=== PATIENT | male | born 1965 | race Caucasian/White ===

== ENCOUNTER 2018-06-18 19:05 | Emergency (ER) | payer BC ==
[~2018-06-18] VITALS: Ht 175.3 cm; Wt 72.6 kg
[~2018-06-18 19:05] MED LIST: FAMO-131 PO; HYDR-4354 PO; IBUP-1955 PO; OXYC-133 PO
[2018-06-18 19:19] VITALS: BP 124/75
[2018-06-18] MEDS ORDERED: CLINDAMYCIN 900 MG/6 ML VIAL ONE (19:45)
[2018-06-18] MEDS ORDERED: LIDOCAINE 1%-EPI 1:100,000 20 ML VIAL ONE (19:45)
[2018-06-18] MEDS ORDERED: LIDOCAINE 1%-EPI 1:100,000 20 ML VIAL TP ONE (20:00)
[2018-06-18] MEDS ORDERED: CLINDAMYCIN 900 MG/6 ML VIAL IM ONE (20:00)
== END 2018-06-18 21:51 | disposition home or self-care (01) ==
LOC: ER 19:09
DX: L02.413 Cutaneous abscess of right upper limb (principal); F17.200 Nicotine dependence, unspecified, uncomplicated; L03.113 Cellulitis of right upper limb; K21.9 Gastro-esophageal reflux disease without esophagitis; F41.9 Anxiety disorder, unspecified; Z79.899 Other long term (current) drug therapy
CPT/HCPCS: 10060; 96372; 99283; 99406; J3490 ×2

== ENCOUNTER 2018-06-19 22:57 | Emergency (ER) | payer BC ==
[~2018-06-19] VITALS: Ht 175.3 cm; Wt 74.8 kg
[2018-06-19 23:06] VITALS: BP 139/92
--- NOTE | 2018-06-19 23:24 | NUR ---
Tressa SUE, PAC IS AT THE BEDSIDE FOR SUTURE REMOVAL.
--- NOTE | 2018-06-19 23:32 | NUR ---
[facility] REPACKED BY Tressa SUE, PAC
--- NOTE | 2018-06-19 23:50 | NUR ---
Patient discharged to home in stable condition. Written and verbal after care instructions given. Patient verbalizes understanding of instruction.
== END 2018-06-19 23:51 | disposition home or self-care (01) ==
LOC: ER 22:59
DX: L02.413 Cutaneous abscess of right upper limb (principal); K21.9 Gastro-esophageal reflux disease without esophagitis; F41.9 Anxiety disorder, unspecified; F17.200 Nicotine dependence, unspecified, uncomplicated

== ENCOUNTER 2018-07-10 20:45 | Emergency (ER) ==
[~2018-07-10] VITALS: Ht 175.3 cm; Wt 74.8 kg
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
[2018-07-10 21:42] LABS: BASOPHILS % (AUTO) 0.6 % (0.0-2.0); HEMATOCRIT 34 % (39-51); HEMOGLOBIN 11.2 g/dL (13.5-17.5); LYMPHOCYTES # (AUTO) 1.8 /CMM (0.8-4.8); LYMPHOCYTES % (AUTO) 44.3 % (20.0-44.0); MEAN CORPUSCULAR HGB CONC 33 g/dl (31.0-36.0); MEAN CORPUSCULAR VOLUME 86 fL (80-96); MONOCYTES # (AUTO) 0.2 /CMM (0.1-1.30); MONOCYTES % (AUTO) 4.5 % (2.0-12.0); NEUTROPHILS # (AUTO) 1.9 /CMM (1.8-8.9); NEUTROPHILS % (AUTO) 48.6 % (43.0-81.0); PLATELET COUNT (AUTO) 264 /CMM (150-450); RED BLOOD CELL COUNT(AUTO) 3.89 MIL/uL (4.5-6.0)
[2018-07-10 21:46] LABS: APPEARANCE,URINE Clear (CLEAR); BILIRUBIN,URINE SMALL (NEGATIVE); BLOOD, URINE Negative Ery/uL (NEGATIVE); KETONES,URINE Negative (NEGATIVE); LEUKOCYTE ESTERASE ,URINE Negative (NEGATIVE); NITRITE, URINE Negative (NEGATIVE); PH,URINE 5.5 (5.0-8.0); PROTEIN,URINE Negative (NEGATIVE); UGLUCOSE Negative (NEGATIVE)
[2018-07-10 21:54] LABS: COLOR,URINE DARK YELLOW (YELLOW)
--- NOTE | 2018-07-10 21:55 | NUR ---
Patient is resting comfortably in bed with eyes closed. Easily aroused. VSS
[2018-07-10 22:17] LABS: CALCIUM, SERUM 8.6 mg/dL (8.5-10.1); CARBON DIOXIDE 31 mmol/L (21-32); CHLORIDE 105 mmol/L (98-107); CREATININE 0.9 mg/dL (0.6-1.3); GLUCOSE 142 mg/dL (74-106); POTASSIUM 3.9 mmol/L (3.5-5.1); SODIUM SERUM 142 mmol/L (136-145); UREA NITROGEN, BLOOD 14 mg/dL (7-18)
[2018-07-10 22:22] LABS: ALANINE AMINOTRANSFERASE 56 U/L (12-78); ALBUMIN 3.6 g/dL (3.4-5.0); ALKALINE PHOSPHATASE 104 U/L (46-116); ASPARTATE AMINOTRANSFERASE 48 U/L (15-37); BILIRUBIN,DIRECT 0.1 mg/dL (0.0-0.2); BILIRUBIN,TOTAL 0.5 mg/dL (0.2-1.0); LIPASE 80 U/L (73-393); TOTAL PROTEIN, SERUM 7.8 g/dL (6.4-8.2)
[2018-07-10] MEDS ORDERED: IPRATROPIUM NEB FS 0.5 MG/2.5 ML AMPUL.NEB NEB ONE (22:30)
[2018-07-10] MEDS ORDERED: ALBUTEROL FS 2.5 MG/3 ML VIAL.NEB NEB ONE (22:30)
[2018-07-10] MEDS ORDERED: IPRATROPIUM NEB FS 0.5 MG/2.5 ML AMPUL.NEB ONE (22:37)
[2018-07-10] MEDS ORDERED: ALBUTEROL FS 2.5 MG/3 ML VIAL.NEB ONE (22:37)
[2018-07-10] MEDS ORDERED: IBUPROFEN 600 MG TABLET PO ONE ×2 (22:38→23:00)
[2018-07-10] MEDS ORDERED: ACETAMINOPHEN ES 500 MG TABLET ONE (22:38)
[2018-07-10] MEDS ORDERED: ACETAMINOPHEN ES 500 MG TABLET PO ONE (23:00)
--- NOTE | 2018-07-10 23:08 | NUR ---
Patient is resting comfortably in bed with family at the bed side. vss. will cont to monitor ,
[2018-07-10 23:14] LABS: BACTERIA,URINE Few /HPF (None Seen); MUCUS,URINE Moderate /LPF (None Seen); SQUAMOUS EPITHELIAL CELL,UR Rare /HPF (None Seen)
--- NOTE | 2018-07-10 23:51 | NUR ---
Patient discharged to home in stable condition. Written and verbal after care instructions given. Patient verbalizes understanding of instruction. vss. afriend will provide ride to the pt.
[2018-07-11 01:11] VITALS: BP 125/72
== END 2018-07-10 23:51 | disposition home or self-care (01) ==
LOC: ER 20:47
DX: J40 Bronchitis, not specified as acute or chronic (principal); R07.81 Pleurodynia; F17.200 Nicotine dependence, unspecified, uncomplicated; I10 Essential (primary) hypertension; K21.9 Gastro-esophageal reflux disease without esophagitis; F41.9 Anxiety disorder, unspecified; F32.9 Major depressive disorder, single episode, unspecified
CPT/HCPCS: 36415; 71045-TC; 80048-TC; 80076-TC; 81000-TC; 83690-TC; 84484-TC; 85025-TC; 87086-TC

== ENCOUNTER 2018-08-09 22:51 | Emergency (ER) | payer BC ==
[~2018-08-09] VITALS: Ht 177.8 cm; Wt 83.5 kg
[2018-08-09] MEDS ORDERED: ALBUTEROL FS 2.5 MG/0.5 ML VIAL.NEB NEB ONE (23:30)
[2018-08-09] MEDS ORDERED: ALBUTEROL FS 2.5 MG/0.5 ML VIAL.NEB ONE (23:48)
[2018-08-10] MEDS ORDERED: IBUPROFEN 400 MG TABLET ONE (00:06)
--- NOTE | 2018-08-10 00:25 | NUR ---
Breathing tx completed. Patient ambulatory w/ steady gait, resp even & unlabored, denies any sob at this time w/ nad noted. Patient discharged to home in stable condition. Written and verbal after care instructions given. Patient verbalizes understanding of instruction.
[2018-08-10 00:27] VITALS: BP 127/76
[2018-08-10] MEDS ORDERED: IBUPROFEN 400 MG TABLET PO ONE (00:30)
== END 2018-08-10 00:28 | disposition home or self-care (01) ==
LOC: ER 22:59
DX: J98.01 Acute bronchospasm (principal); F17.200 Nicotine dependence, unspecified, uncomplicated; I10 Essential (primary) hypertension; K21.9 Gastro-esophageal reflux disease without esophagitis; F41.9 Anxiety disorder, unspecified; F32.9 Major depressive disorder, single episode, unspecified
CPT/HCPCS: 71045-TC

== ENCOUNTER 2018-08-15 23:51 | Inpatient (IN) | payer BC ==
[~2018-08-15] VITALS: Ht 175.3 cm; Wt 82.6 kg
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
--- NOTE | 2018-08-16 00:28 | NUR ---
PT IS GOING TO [facility] VIA [facility].
[2018-08-16] MEDS ORDERED: ACETAMINOPHEN 325 MG TABLET PO ONE (00:30)
[2018-08-16] MEDS ORDERED: ACETAMINOPHEN ES 500 MG TABLET ONE (00:41)
--- NOTE | 2018-08-16 00:55 | NUR ---
PT RETURNED FROM CT.
--- NOTE | 2018-08-16 01:00 | NUR ---
PT'S IS AT THE BEDSIDE.
--- NOTE | 2018-08-16 01:25 | NUR ---
Nannette ERIC PA-C IS AT THE BEDSIDE SPEAKING TO THE PT RE: THE IMAGING FINDINGS.
[2018-08-16 02:05] LABS: BASOPHILS % (AUTO) 0.9 % (0.0-2.0); EOSINOPHILS % (AUTO) 2.9 % (0.0-6.0); HEMATOCRIT 31 % (39-51); HEMOGLOBIN 10.3 g/dL (13.5-17.5); LYMPHOCYTES # (AUTO) 1.8 /CMM (0.8-4.8); MEAN CORPUSCULAR HGB CONC 34 g/dl (31.0-36.0); MEAN CORPUSCULAR VOLUME 85 fL (80-96); MONOCYTES # (AUTO) 0.2 /CMM (0.1-1.30); MONOCYTES % (AUTO) 4.6 % (2.0-12.0); NEUTROPHILS # (AUTO) 1.5 /CMM (1.8-8.9); NEUTROPHILS % (AUTO) 40.6 % (43.0-81.0); PLATELET COUNT (AUTO) 303 /CMM (150-450); RED BLOOD CELL COUNT(AUTO) 3.59 MIL/uL (4.5-6.0); WHITE BLOOD COUNT (AUTO) 3.6 K/uL (4.3-11.0)
[2018-08-16 02:12] LABS: CALCIUM, SERUM 8.6 mg/dL (8.5-10.1); CREATININE 0.8 mg/dL (0.6-1.3); POTASSIUM 4.4 mmol/L (3.5-5.1)
--- NOTE | 2018-08-16 02:12 | NUR ---
PT'S LEFT AND PT IS TRYING TO HAVE HER COME BACK. PT'S WANTS TO LEAVE.
--- NOTE | 2018-08-16 02:44 | NUR ---
PT APPEARS TO BE RESTING COMFORTABLY WITH NO S/S OF PAIN OR DISTRESS. VSS.
--- NOTE | 2018-08-16 03:13 | NUR ---
REPORT GIVEN TO DEBBIE MEDEL FOR DANNIE.
[2018-08-16 04:00] VITALS: BP 141/92
[2018-08-16] MEDS ORDERED: ONDANSETRON HCL/PF 4 MG/2 ML VIAL IVP PRN (04:00)
[2018-08-16] MEDS ORDERED: HYDROCODONE/APAP 5/325MG 1 EACH TABLET PO PRN (04:00)
[2018-08-16] MEDS ORDERED: MORPHINE SULFATE INJ 2 MG/ML DISP.SYRIN IV PRN (04:00)
[2018-08-16] MEDS ORDERED: ACETAMINOPHEN 325 MG TABLET PO PRN (04:00)
[2018-08-16] MEDS ORDERED: Z GUARD REMEDY 2 OZ OINT TP PRN (04:00)
[2018-08-16] MEDS ORDERED: MAGNESIUM HYDROXIDE 30 ML UDC PO PRN (04:00)
[2018-08-16] MEDS ORDERED: ZOLPIDEM TARTRATE 5 MG TABLET PO PRN (04:00)
[2018-08-16] MEDS ORDERED: MAG HYDROX/AL HYDROX/SIMETH 30 ML UDC PO PRN (04:00)
--- NOTE | 2018-08-16 04:09 | NUR ---
REPORT GIVEN TO LIGIA LEWIS FOR CONTINUATION OF CARE.
[2018-08-16 04:10] VITALS: BP 141/92
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
[2018-08-16] MEDS ORDERED: AMLO5TAB4 PO (04:40)
[2018-08-16] MEDS ORDERED: BUPR-96 PO (04:40)
[2018-08-16] MEDS ORDERED: ALPR2TAB7 PO (04:40)
[2018-08-16] MEDS ORDERED: METH10TA2 PO (04:40)
--- NOTE | 2018-08-16 06:41 | NUR ---
MS RN CLOSING NOTES Patient resting in bed, alert, oriented x 3. Breathing even and unlabored. Not in any distress, on room air. Patient complaining of sternal pain, 08/30. [place] 5-325 given as ordered. No acute changes since patient came to the unit. Safety measures in place. Will continue to monitor accordingly
[2018-08-16 08:00] VITALS: BP 141/90
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
[2018-08-16] MEDS ORDERED: BUPROPION XL 150 MG TAB.ER.24 PO SCH (09:00)
[2018-08-16] MEDS ORDERED: AMLODIPINE BESYLATE 5 MG TABLET PO SCH (09:00)
[2018-08-16] MEDS ORDERED: ALPRAZOLAM 1 MG TABLET PO SCH (09:00)
[2018-08-16 09:03] VITALS: BP 141/90
[2018-08-16] MEDS: IBUPROFEN 600 MG TABLET PO SCH ×2 (09:03→17:48)
[2018-08-16] MEDS ORDERED: METHADONE HCL 10 MG TABLET PO SCH (12:00)
--- NOTE | 2018-08-16 18:33 | NUR ---
PATIENT SIGNED AMA FORM ,DOES NOT WANT TO STAY IN THE HOSPITAL PER PATIENT 'THERE IS NOTHING WE CAN DO',EXPLAINED RISK OF LEAVING AMA AND STILL DECIDED AMA,INSTRUCTED TO GO BACK TO ER IF SYMPTOMS RECUR. NOTIFIED,NSG SUP MADE AWARE,IV REMOVED,LEFT AMBULATORY.
[2018-08-17] MEDS ORDERED: NICOTINE PATCH (14MG) 14 MG PATCH.TD24 TD SCH (09:00)
== END 2018-08-16 18:30 | disposition left against medical advice (07) | DRG 135 ==
LOC: ER 23:53 → TELE1 08-16 03:15 → MEDSG1 08-16 03:59
PROVIDERS: ADMIT Registered Nurse; ATTEND Registered Nurse
DX: S22.22XA Fracture of body of sternum, initial encounter for closed fracture (principal); M48.04 Spinal stenosis, thoracic region; S22.42XA Multiple fractures of ribs, left side, initial encounter for closed fracture; I10 Essential (primary) hypertension; V18.0XXA Pedal cycle driver injured in noncollision transport accident in nontraffic accident, initial encounter; Y93.55 Activity, bike riding; Y92.89 Other specified places as the place of occurrence of the external cause; K21.9 Gastro-esophageal reflux disease without esophagitis; D64.9 Anemia, unspecified; F32.9 Major depressive disorder, single episode, unspecified; F41.9 Anxiety disorder, unspecified; Z79.899 Other long term (current) drug therapy; F19.90 Other psychoactive substance use, unspecified, uncomplicated; Z72.0 Tobacco use; D72.819 Decreased white blood cell count, unspecified; J98.11 Atelectasis; N20.0 Calculus of kidney
CPT/HCPCS: 36415; 71250-TC; 73564-TC; 80048-TC; 85025-TC; 85730-TC; 87081-TC; G0378; J7030